=== PATIENT | male | born 1985 | race Asian ===

== ENCOUNTER 2019-01-22 11:08 | Day surgery (SDC) | payer MEDICARE | END 2019-01-22 23:18 | disposition home or self-care (01) | LOC: WOUND 11:08 | DX: L89.891 Pressure ulcer of other site, stage 1 (principal); M21.371 Foot drop, right foot | CPT/HCPCS: G0463 ==

== ENCOUNTER 2019-04-23 21:59 | Emergency (ER) | payer MEDICARE ==
[~2019-04-23] VITALS: Ht 177.8 cm; Wt 79.4 kg
[2019-04-23] MEDS ORDERED: GABA400 PO (22:18)
== END 2019-04-23 23:17 | disposition home or self-care (01) ==
LOC: ER 21:59
DX: M79.675 Pain in left toe(s) (principal); Z88.1 Allergy status to other antibiotic agents; Z79.899 Other long term (current) drug therapy; F17.210 Nicotine dependence, cigarettes, uncomplicated
CPT/HCPCS: 99282

== ENCOUNTER 2019-09-20 20:02 | Emergency (ER) | payer SELFPAY ==
[~2019-09-20] VITALS: Ht 180.3 cm; Wt 79.4 kg
[~2019-09-20 20:02] MED LIST: GABA400 PO
[2019-09-20] MEDS ORDERED: Norco 10-325 T1 EACH PO (21:07)
[2019-09-20] MEDS ORDERED: Keflex500 MG PO (23:40)
== END 2019-09-20 23:48 | disposition home or self-care (01) ==
LOC: ER 20:02
DX: L03.115 Cellulitis of right lower limb (principal); L97.519 Non-pressure chronic ulcer of other part of right foot with unspecified severity; M21.371 Foot drop, right foot; F17.210 Nicotine dependence, cigarettes, uncomplicated; Z88.1 Allergy status to other antibiotic agents; Z98.890 Other specified postprocedural states
CPT/HCPCS: 99282; A9270-GY

== ENCOUNTER → 2020-05-28 | Outpatient (CLI) | payer SELFPAY ==
[~2020-05-28] MED LIST changes: +Keflex500 MG PO; +Norco 10-325 T1 EACH PO
== END | disposition home or self-care (01) ==
LOC: LAB SHORT 14:01 → LAB 14:01
DX: J06.9 Acute upper respiratory infection, unspecified (principal)
CPT/HCPCS: 87081

== ENCOUNTER 2021-12-29 15:20 | Observation (INO) | payer MEDICARE, OTHER ==
[~2021-12-29] VITALS: Ht 177.8 cm; Wt 65.8 kg
[2021-12-29 19:20] LABS: BASOPHILS ABSOLUTE AUTO 0.07 K/mm3 (0.00-0.23); BASOPHILS PERCENT AUTO 1 % (0-2); EOSINOPHILS ABSOLUTE AUTO 0.13 K/mm3 (0.00-0.68); EOSINOPHILS PERCENT AUTO 2 % (0-6); Hematocrit 42.5 % (37.0-53.0); Hemoglobin 14.1 g/dL (13.5-17.5); IMMATURE GRAN ABSOLUTE AUTO 0.01 K/mm3 (0.00-0.10); IMMATURE GRAN PERCENT AUTO 0 % (0-1); LYMPHOCYTES ABSOLUTE AUTO 2.36 K/mm3 (0.84-5.20); LYMPHOCYTES PERCENT AUTO 31 % (21-46); MONOCYTES ABSOLUTE AUTO 0.52 K/mm3 (0.16-1.47); MONOCYTES PERCENT AUTO 7 % (4-13); Mean Corpuscular HGB 31.5 pg (26.0-34.0); Mean Corpuscular HGB Conc 33.2 g/dL (31.5-36.5); Mean Corpuscular Volume 95 fL (80-100); Mean Platelet Volume 9.1 fL (9.1-12.4); NEUTROPHILS ABSOLUTE AUTO 4.63 K/mm3 (1.96-9.15); NEUTROPHILS PERCENT AUTO 60 % (41-73); Platelet Count 292 K/mm3 (150-400); RDW Coefficient Variation 12.8 % (11.7-14.2); RDW Standard Deviation 44.5 fL (35.1-46.3); Red Blood Cell Count 4.47 M/mm3 (4.30-5.90); White Blood Cell Count 7.72 K/mm3 (4.00-11.30)
[2021-12-29 19:45] LABS: Albumin, Blood 3.9 g/dL (3.4-5.0); Bilirubin, Total 0.4 mg/dL (0.1-1.0); Bun/Creatinine Ratio 10.4 (12.0-20.0); Calcium, Blood 8.4 mg/dL (8.5-10.1); Creatinine, Blood 0.87 mg/dL (0.60-1.20); Globulin, Blood 3.8 g/dL (2.2-4.0); Potassium, Blood 3.9 mmol/L (3.5-5.5); Total Protein, Blood 7.7 g/dL (6.4-8.2)
--- NOTE | 2021-12-29 23:11 | NUR ---
PATIENT IS A NEW ADMIT FROM THE ED. AXOX 4 AND SELF TRANSFER FROM [facility] TO BED. DENIES CHEST PAIN, SOB, AND N/V. ON ROOM AIR. CONSENT TO PHOTOGRAPH SIGNED. PICTURE TAKEN OF ABSCESS OF PLANTAR ASPECT OF RIGHT FOOT AND IN CHART. CRM ANALYST CONSULT IN ED BY DR ROSALIO PACHECO PER ED RN. REFUSED COVID SWAB AT THIS TIME. REPORTS LIVES IN [place] WITH FRIEND. ORIENTED TO ROOM AND CALL LIGHT SYSTEM. [facility].
--- NOTE | 2021-12-30 04:26 | NUR ---
SHIFT SUMMARY PATIENT HAD NO ACUTE CHANGES OBSERVED. NPO FOR DEBRIDEMENT PROCEDURE TODAY TO ABSCESS OF PLANTAR ASPECT OF RIGHT FOOT. AXOX 4 AND SBA TO BR. PIV REMAINS INTACT. LR INFUSING AT 125mL/HR. DENIES CHEST PAIN, SOB, AND N/V. REPORTS HX OF RIGHT FOOT DROP. VSS/AFEBRILE. COOPERATIVE WITH CARE. CALL LIGHT IN REACH. BED IN LOWEST POSITION. WILL CONTINUE TO MONITOR UNTIL DAY SHIFT NURSE ASSUMES CARE.
[2021-12-30] MEDS ORDERED: VISBIOME 112.51 EACH PO (13:36)
[2021-12-30] MEDS ORDERED: CEPH500 PO (13:37)
--- NOTE | 2021-12-30 13:45 | NUR ---
DISCHARGE PT A&O X4 @ TIME OF D/C. IV D/MANISH BY VICKIE. PT PROVIDED W/ WRITTEN AND VERBAL INSTUCTION, PT VERBALIZED UNDERSTANDING. VSS. MEDS FAXED INTO [facility] ON [address]. PT ESCORTED TO ELEVATOR, VERBALIZE ABILITY TO SELF AMBULATE TO [facility].
== END 2021-12-30 13:47 | disposition home or self-care (01) ==
LOC: ER 15:20 → MEDS 15:21
PROVIDERS: Physician Assistant; ADMIT Internal Medicine
DX: L02.611 Cutaneous abscess of right foot (principal); F17.210 Nicotine dependence, cigarettes, uncomplicated; G62.9 Polyneuropathy, unspecified; L97.519 Non-pressure chronic ulcer of other part of right foot with unspecified severity; Z88.1 Allergy status to other antibiotic agents; M21.371 Foot drop, right foot; I10 Essential (primary) hypertension; T79.7XXA Traumatic subcutaneous emphysema, initial encounter; X58.XXXA Exposure to other specified factors, initial encounter
CPT/HCPCS: 36415; 73620; 73701; 80053; 83605; 85025; 85651; 96365; 96366; 96375; 99284-25; G0378; J2543; J3370; J7030; J7060; J7120; Q9967

== ENCOUNTER 2022-01-11 10:01 | Day surgery (SDC) | payer MEDICARE, OTHER ==
[~2022-01-11 10:01] MED LIST changes: +CEPH500 PO; +VISBIOME 112.51 EACH PO
== END 2022-01-11 23:34 | disposition home or self-care (01) ==
LOC: WOUND 10:01
DX: L89.893 Pressure ulcer of other site, stage 3 (principal); I70.209 Unspecified atherosclerosis of native arteries of extremities, unspecified extremity; I87.2 Venous insufficiency (chronic) (peripheral); G83.4 Cauda equina syndrome; F17.210 Nicotine dependence, cigarettes, uncomplicated; Z88.1 Allergy status to other antibiotic agents
CPT/HCPCS: 99406; A9270; G0463

== ENCOUNTER 2022-02-19 02:24 | Day surgery (SDC) | payer MEDICARE, OTHER | END 2022-02-19 23:38 | disposition home or self-care (01) | LOC: WOUND 02:24 | DX: L89.893 Pressure ulcer of other site, stage 3 (principal); I70.209 Unspecified atherosclerosis of native arteries of extremities, unspecified extremity; I87.2 Venous insufficiency (chronic) (peripheral); G83.4 Cauda equina syndrome; F17.200 Nicotine dependence, unspecified, uncomplicated | CPT/HCPCS: A9270 ==

== ENCOUNTER 2022-03-05 01:25 | Day surgery (SDC) | payer MEDICARE, OTHER | END 2022-03-05 23:17 | disposition home or self-care (01) | LOC: WOUND 01:25 | DX: L89.893 Pressure ulcer of other site, stage 3 (principal); I70.209 Unspecified atherosclerosis of native arteries of extremities, unspecified extremity; I87.2 Venous insufficiency (chronic) (peripheral); G83.4 Cauda equina syndrome; Z72.0 Tobacco use | CPT/HCPCS: A9270; G0463 ==